=== PATIENT | female | born 1990 | race Caucasian/White ===

== ENCOUNTER 2018-01-01 22:55 | Emergency (ER) | payer OTHER ==
[~2018-01-01] VITALS: Ht 162.6 cm; Wt 63.5 kg
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
[2018-01-02] MEDS ORDERED: TETRACAINE HCL/PF 0.5% UD 2 ML BOTTLE ONE ×2 (00:41→00:46)
[2018-01-02] MEDS ORDERED: FLUORESCEIN SODIUM OPHTH 1 EA STRIP ONE ×2 (00:41→00:45)
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
[2018-01-02] MEDS ORDERED: SOD BORATE/BORIC AC/H2O/NACL 118 ML BOTTLE ONE (00:45)
--- NOTE | 2018-01-02 00:45 | NUR ---
EYE IRRIGATION DONE ON BOTH EYES ORDERED.
[2018-01-02] MEDS ORDERED: TDAP [DIPH/PERTUSSIS/TET] 0.5 ML VIAL IM ONE ×2 (00:46→01:00)
[2018-01-02] MEDS ORDERED: CEPHALEXIN MONOHYDRATE 500 MG CAPSULE PO ONE ×2 (00:46→01:00)
--- NOTE | 2018-01-02 00:53 | NUR ---
pt medicated as ordered.
[2018-01-02] MEDS ORDERED: TETRACAINE HCL/PF 0.5% UD 2 ML BOTTLE EACHEYE ONE (01:00)
[2018-01-02] MEDS ORDERED: SOD BORATE/BORIC AC/H2O/NACL 118 ML BOTTLE OP ONE (01:00)
[2018-01-02] MEDS ORDERED: FLUORESCEIN SODIUM OPHTH 1 EA STRIP OP ONE (01:00)
--- NOTE | 2018-01-02 02:05 | NUR ---
Patient discharged to home in stable condition. Written and verbal after care instructions given. Patient verbalizes understanding of instruction.
[2018-01-02 02:07] VITALS: BP 124/88
== END 2018-01-02 02:08 | disposition home or self-care (01) ==
LOC: ER 23:01
DX: S05.32XA Ocular laceration without prolapse or loss of intraocular tissue, left eye, initial encounter (principal); S05.31XA Ocular laceration without prolapse or loss of intraocular tissue, right eye, initial encounter; S60.512A Abrasion of left hand, initial encounter; S60.511A Abrasion of right hand, initial encounter; V89.2XXA Person injured in unspecified motor-vehicle accident, traffic, initial encounter; Y93.89 Activity, other specified; Y92.410 Unspecified street and highway as the place of occurrence of the external cause; Y99.8 Other external cause status
CPT/HCPCS: 90471; 90715; 99284; A4606; Z7610